=== PATIENT | female | born 1955 | race Caucasian/White ===

== ENCOUNTER 2017-08-27 18:30 | Emergency (ER) | payer OTHER ==
[2017-08-27 18:40] VITALS: TEMP 36.7; Ht 167.6 cm
--- NOTE | 2017-08-27 20:01 | EMERGENCY ROOM VISIT NOTE ---
History Report prepared by Nitinibgómez: Nesha Singh Under the Supervision of: Dr. Kenneth Law M.D. First contact with patient: 19:40 Chief Complaint: FALL Stated Complaint: FELL FRIDAY,PRESSURE IN HEAD,PAIN AND L LEG PAIN History of Present Illness The patient is a 61 year old white female with a past medical history of GERD, DM, hyperlipidemia and hypertension who presents to the ED with a cc of a fall 5 days ago. She states she was walking up the sidewalk when she stepped in the dirt and lost her balance, hitting the sidewalk with her forehead and left knee. She rates her discomfort as an 8/10 in severity. Positive dizziness, headache, nausea, fatigue. Negative LOC. Her family reports she went to [facility] twice over the past 5 days, but they are here to make sure "nothing was missed". The patient states the only blood thinner she takes is a daily Aspirin. 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 A total of ten systems were reviewed and were otherwise negative. Past Medical & Surgical Medical Problems: (1) Diabetes mellitus (2) GERD (gastroesophageal reflux disease) (3) Hyperlipidemia (4) Hypertension Social History Smoking Status: Former Smoker Alcohol Use: none Drug Use: none Marital Status: single Housing Status: lives with family Occupation Status: retired Current/Historical Medications Scheduled Aspirin (Aspirin Ec), 162 MG PO DAILY Atorvastatin (Lipitor), 40 MG PO DAILY Duloxetine HCl (Cymbalta), 40 MG PO DAILY Empagliflozin (Jardiance), 25 MG PO DAILY Ergocalciferol (Vitamin D 70315 Unit), 50,000 UNIT PO 2XWK Esomeprazole Magnesium (Nexium), 40 MG PO DAILY Fenofibrate (Tricor), 160 MG PO HS Fish Oil ([place]-3), 1 CAP PO BID Flaxseed (Linseed) (Flax Seed Oil), 1 CAP PO BID Flaxseed (Linseed) (Flax Seed Oil), 1,000 MG PO BID Insulin Human Lispro (Insulin Humalog Pump ), 1 EA N/A UD Metformin Hcl (Glucophage), 1,000 MG PO BID Valsartan (Diovan), 40 MG PO DAILY Scheduled PRN Albuterol Hfa (Ventolin Hfa), 2 PUFFS INH Q4 PRN for SOB/Wheezing Furosemide (Lasix), 10 MG PO DAILY PRN for edema Ondansetron Hcl (Zofran), 4 MG PO Q8 PRN for Nausea Oxycodone/Acetaminophen 5MG/325MG (Percocet 5MG/325MG), 1 TABLET PO Q4H PRN for Pain Tizanidine (Zanaflex), 4 MG PO TID PRN for Muscle Spasms Allergies Coded Allergies: Thioridazine (Verified Allergy, Severe, PT STATED TO YVETTE, SHE COULD NOT STOP TAKING., 08/27/17) Omeprazole (Verified Allergy, Intermediate, RASH, 08/27/17) Tricyclic Antidepressants (Verified Allergy, Intermediate, RASH, 08/27/17) Acetaminophen (Verified Allergy, Unknown, UNKNOWN, 08/27/17) Amitriptyline (Verified Allergy, Unknown, ITCHING, 08/27/17) Ciprofloxacin (Verified Allergy, Unknown, RASH, 08/27/17) Codeine (Verified Allergy, Unknown, UNKNOWN, 08/27/17) Exenatide (Verified Allergy, Unknown, DIARRHEA, 08/27/17) Hydrocodone (Verified Allergy, Unknown, UNKNOWN, 08/27/17) Liraglutide (Verified Allergy, Unknown, DIARRHEA, 08/27/17) Perphenazine (Verified Allergy, Unknown, ITCHING, 08/27/17) Phenol (Verified Allergy, Unknown, DIARRHEA, 08/27/17) Propylene Glycol (Verified Allergy, Unknown, DIARRHEA, 08/27/17) Ibuprofen (Verified Adverse Reaction, Intermediate, NAUSEA/VOMITING, ) Physical Exam Vital Signs Date Time Temp Pulse Resp B/P (MAP) Pulse Ox O2 Delivery O2 Flow Rate FiO2 08/27/17 22:19 99 18 153/70 93 08/27/17 20:25 95 18 139/95 94 Room Air 08/27/17 18:40 36.7 98 18 123/70 94 Room Air Physical Exam GENERAL: Awake, alert, well-appearing, NAD HENT: Normocephalic, atraumatic. Left frontal hematoma EYES: Bilateral periorbital ecchymosis. Normal conjunctiva. Sclera non-icteric. EOMI, does not appear entrapped, gross vision intact, no proptosis NECK: Supple. No nuchal rigidity. FROM. RESPIRATORY: CTAB, no rhonchi, wheezing, crackles CARDIAC: RRR, no MRG ABDOMEN: Soft, NTND, BS+, pump insertion site in left lower side of abdomen, CDI MSK: No chest wall TTP, no LE edema, mild left knee pain, compartment is soft, neuro intact distally NEURO: GCS 15, CN 2-12 intact, moves all 4s on command SKIN: No rash or jaundice noted. Medical Decision & Procedures ER Provider Diagnostic Interpretation: Radiology results as stated below per my review and radiologist interpretation: LEFT KNEE 3 VIEWS HISTORY: s/p fall, L knee pain COMPARISON: None. FINDINGS: There is no fracture or dislocation. Soft tissues are unremarkable. No radiopaque foreign bodies. No knee effusion. Vascular calcifications are noted. IMPRESSION: No fractures. Electronically signed by: Lyndon Vicente M.D. 08/27/2017 9:16 PM Medications Administered Medications (Trade) Dose Ordered Sig/Abdoul Route Start Time Stop Time Status Last Admin Dose Admin Diphenhydramine HCl (Benadryl Inj) 25 mg NOW STAT IV 08/27/17 20:03 08/27/17 20:05 DC 08/27/17 20:29 25 MG Ketorolac Tromethamine (Toradol Inj) 30 mg NOW STAT IV 08/27/17 20:03 08/27/17 20:05 DC 08/27/17 20:28 30 MG Metoclopramide HCl (Reglan Inj) 10 mg NOW STAT IV. 08/27/17 20:03 08/27/17 20:06 DC 08/27/17 20:28 10 MG Acetaminophen (Tylenol Tab) 650 mg NOW STAT PO 08/27/17 20:03 08/27/17 20:06 DC 08/27/17 20:27 650 MG ED Course 1951: The patient was evaluated in room B8. A complete history and physical exam was performed. 2007: Upon review of the patients recent imaging, she had a negative CT head, CT C-Spine and CT Maxillofacial at [facility] on August 23. 2144: I reevaluated the patient. She is resting comfortably. I discussed her results and discharge instructions and I verbalized complete understanding and agreement. Medical Decision The patient is a 61 year old white female with a past medical history of GERD, DM, hyperlipidemia and hypertension who presents to the ED with a cc of a fall 5 days ago. Triage Nursing notes reviewed. The patient's presentation and history were concerning for traumatic injury. Differential diagnosis: Etiologies such as fracture, dislocation, intra-abdominal, pneumothorax, intrathoracic , intracranial, neurologic, as well as other traumatic pathologies were entertained. Patient was seen and evaluated the bedside. Patient did have mechanical fall on Friday and was seen twice in the bedside Hospital where she did have CT scans completed. I did obtain outside records showed she had a negative CT of the brain, C-spine, and maxillofacial. Patient did complain of some mild left knee pain however she is neuro intact. Patient had a negative left knee film. Patient did have some headache and was given a headache cocktail. Patient has a normal nonfocal neurologic exam had a ground-level fall only on baby aspirin and this occurred several days ago. I do not believe that she needs a repeat study at this time. Upon reassessment the patient's pain improved improved. She was told to follow-up with her primary care physician discuss possible concussion remedies and follow up with specialist as needed. Patient was deemed suitable for outpatient follow-up treatments time. Patient was given strict follow-up, discharge, and return precautions. All questions were answered. Patient was deemed suitable for outpatient follow-up at this time. Patient agreed with the plan of care and was safely discharged home. The chart was completed utilizing [employer] Speech voice recognition software. Grammatical errors, random word insertions, pronoun errors, and incomplete sentences are an occasional consequence of this system due to software limitations, ambient noise, and hardware issues. Any formal questions or concerns about the content, text, or information contained within the body of this dictation should be directly addressed to the physician for clarification. Medication Reconcilliation Current Medication List: was personally reviewed by me Blood Pressure Screening Patient's blood pressure: Normal blood pressure Blood pressure disposition: Did not require urgent referral Impression Primary Impression: Fall Additional Impressions: Contusion of multiple sites Knee pain, left Concussion Scribe Attestation The scribe's documentation has been prepared under my direction and personally reviewed by me in its entirety. I confirm that the note above accurately reflects all work, treatment, procedures, and medical decision making performed by me. Departure Information Dispostion Home / Self-Care Referrals Bee Roldan (PCP) [facility] Patient Instructions Concussion Dc, ED Mechanical Fall, My [facility] Additional Instructions Please return to the emergency department if you have worsening or recurrent symptoms not amenable to at-home treatment. Please call for a follow-up appointment with her primary care physician. Please take your medications as prescribed. If you have other concerns and/or complaints please feel free to also call your primary care physician's office or return the ED for further evaluation, management, and treatment. You may take 400 mg Ibuprofen every 6 hours as needed for pain with food for no more than 2 consecutive days. You may take tylenol 650 mg every 6 hours as needed for pain. You may take motrin and tylenol separately or at the same time. Take your medications as prescribed. You have been examined and treated today on an emergency basis only. This is not a substitute for, or an effort to provide, complete comprehensive medical care. It is impossible to recognize and treat all injuries or illnesses in a single emergency department visit. It is therefore important that you follow up closely with [facility], your PCP, and/or your specialist(s). Call as soon as possible for an appointment. Thank you for your time and consideration. I look forward to speaking with you again soon. Please don't hesitate to call us if you have any questions. Problem Qualifiers Primary Impression: Fall Encounter type: subsequent encounter Qualified Codes: W19.XXXD - Unspecified fall, subsequent encounter Additional Impressions: Knee pain, left Chronicity: acute Qualified Codes: M25.562 - Pain in left knee Concussion Encounter type: subsequent encounter Loss of consciousness presence/duration : without LOC Qualified Codes: S06.0X0D - Concussion without loss of consciousness, subsequent encounter
[2017-08-27] MEDS ORDERED: DiphenhydrAMINE HCL 50 MG/ML VIAL IV STA (20:03)
[2017-08-27] MEDS ORDERED: ACETAMINOPHEN 325 MG TAB PO STA (20:03)
[2017-08-27] MEDS ORDERED: KETOROLAC TROMETHAMINE 30 MG/ML VIAL IV STA (20:03)
[2017-08-27] MEDS ORDERED: METOCLOPRAMIDE HCL INJ 5 MG/ML 2 ML VIAL IV. STA (20:03)
--- NOTE | 2017-08-27 21:17 | DIAGNOSTIC IMAGING REPORT ---
LEFT KNEE 3 VIEWS HISTORY: s/p fall, L knee pain COMPARISON: None. FINDINGS: There is no fracture or dislocation. Soft tissues are unremarkable. No radiopaque foreign bodies. No knee effusion. Vascular calcifications are noted. IMPRESSION: No fractures. Electronically signed by: Lyndon Vicente M.D. 08/27/2017 9:16 PM Dictated Date/Time: 08/27/2017 9:15 PM
[2017-08-27] MEDS ORDERED: ONDA4TAB46 PO (21:34)
[2017-08-27] MEDS ORDERED: EMPA1TAB3 PO (21:34)
[2017-08-27] MEDS ORDERED: VALS40TA2 PO (21:34)
[2017-08-27] MEDS ORDERED: FENO160T PO (21:34)
[2017-08-27] MEDS ORDERED: FURO-85 PO (21:34)
[2017-08-27] MEDS ORDERED: METF-384 PO (21:34)
[2017-08-27] MEDS ORDERED: OXYC-57 PO (21:34)
[2017-08-27] MEDS ORDERED: BUPR100T8 PO (21:34)
[2017-08-27] MEDS ORDERED: INSPMPHMLG (21:34)
[2017-08-27] MEDS ORDERED: ATOR-24 PO (21:34)
[2017-08-27] MEDS ORDERED: TIZA4CAP PO (21:34)
[2017-08-27] MEDS ORDERED: ESOM20CA PO (21:34)
[2017-08-27] MEDS ORDERED: FLAX10007 PO (21:34)
[2017-08-27] MEDS ORDERED: ERGO500037 PO (21:34)
[2017-08-27] MEDS ORDERED: FLAX100025 PO (21:34)
[2017-08-27] MEDS ORDERED: VNTHFA/IN INH (21:34)
[2017-08-27] MEDS ORDERED: DULO-24 PO (21:34)
[2017-08-27] MEDS ORDERED: ASPI81TA28 PO (21:35)
[2017-08-27] MEDS ORDERED: OMEG10007 PO (21:51)
[2017-08-27 22:19] VITALS: BP 153/70; PULSE 99; O2SAT 93
== END 2017-08-27 22:22 | disposition home or self-care (01) ==
LOC: C.EDB 18:32
DX: M25.562 Pain in left knee (principal); S06.0X0D Concussion without loss of consciousness, subsequent encounter; W19.XXXD Unspecified fall, subsequent encounter; E11.9 Type 2 diabetes mellitus without complications; K21.9 Gastro-esophageal reflux disease without esophagitis; E78.5 Hyperlipidemia, unspecified; I10 Essential (primary) hypertension; Z87.891 Personal history of nicotine dependence; Z79.82 Long term (current) use of aspirin; Z79.4 Long term (current) use of insulin